=== PATIENT | female | born 1945 | race Caucasian/White ===

== ENCOUNTER → 2019-03-22 | Outpatient (CLI) | payer MEDICARE | END | disposition home or self-care (01) | LOC: RAH 10:28 | PROVIDERS: ATTEND Physical Medicine & Rehabilitation | DX: M51.06 Intervertebral disc disorders with myelopathy, lumbar region (principal); M48.061 Spinal stenosis, lumbar region without neurogenic claudication; M47.16 Other spondylosis with myelopathy, lumbar region; M43.16 Spondylolisthesis, lumbar region; M89.38 Hypertrophy of bone, other site | CPT/HCPCS: 72148 ==

== ENCOUNTER → 2020-04-05 | Outpatient (CLI) | payer MEDICARE | END | disposition home or self-care (01) | LOC: SHCH 14:58 | PROVIDERS: ATTEND Internal Medicine Cardiovascular Disease | DX: I87.2 Venous insufficiency (chronic) (peripheral) (principal) | CPT/HCPCS: 93970 ==

== ENCOUNTER → 2020-07-03 | Outpatient (CLI) | payer MEDICARE ==
[~2020-07-03] MED LIST: LIDOCAINE HCL 2% JELLY 5 ML ONE
== END | disposition home or self-care (01) ==
LOC: WHH 11:00
PROVIDERS: ATTEND Family Medicine
DX: L97.812 Non-pressure chronic ulcer of other part of right lower leg with fat layer exposed (principal); S81.801A Unspecified open wound, right lower leg, initial encounter; L02.416 Cutaneous abscess of left lower limb; S41.111A Laceration without foreign body of right upper arm, initial encounter; M48.00 Spinal stenosis, site unspecified; M85.80 Other specified disorders of bone density and structure, unspecified site; J44.9 Chronic obstructive pulmonary disease, unspecified; M06.9 Rheumatoid arthritis, unspecified; M79.7 Fibromyalgia; Z88.0 Allergy status to penicillin; Z86.73 Personal history of transient ischemic attack (TIA), and cerebral infarction without residual deficits; X58.XXXA Exposure to other specified factors, initial encounter; Y93.89 Activity, other specified; Y92.89 Other specified places as the place of occurrence of the external cause; Y99.8 Other external cause status
CPT/HCPCS: 10060; 11042; A6021; A6197

== ENCOUNTER → 2020-07-10 | Outpatient (CLI) | payer MEDICARE | END | disposition home or self-care (01) | LOC: WHH 11:00 | PROVIDERS: ATTEND Family Medicine | DX: L97.812 Non-pressure chronic ulcer of other part of right lower leg with fat layer exposed (principal); S81.801D Unspecified open wound, right lower leg, subsequent encounter; L02.416 Cutaneous abscess of left lower limb; M48.00 Spinal stenosis, site unspecified; M85.80 Other specified disorders of bone density and structure, unspecified site; J44.9 Chronic obstructive pulmonary disease, unspecified; M06.9 Rheumatoid arthritis, unspecified; M79.7 Fibromyalgia; Z88.0 Allergy status to penicillin; Z86.73 Personal history of transient ischemic attack (TIA), and cerebral infarction without residual deficits; X58.XXXD Exposure to other specified factors, subsequent encounter | CPT/HCPCS: 11042; 87070; A6021; A6197 ==

== ENCOUNTER → 2020-07-17 | Outpatient (CLI) | payer MEDICARE | END | disposition home or self-care (01) | LOC: WHH 10:30 | PROVIDERS: ATTEND Family Medicine | DX: L97.812 Non-pressure chronic ulcer of other part of right lower leg with fat layer exposed (principal); L97.822 Non-pressure chronic ulcer of other part of left lower leg with fat layer exposed; S81.801D Unspecified open wound, right lower leg, subsequent encounter; L02.416 Cutaneous abscess of left lower limb; M48.00 Spinal stenosis, site unspecified; M85.80 Other specified disorders of bone density and structure, unspecified site; J44.9 Chronic obstructive pulmonary disease, unspecified; M06.9 Rheumatoid arthritis, unspecified; M79.7 Fibromyalgia; Z88.0 Allergy status to penicillin; Z86.73 Personal history of transient ischemic attack (TIA), and cerebral infarction without residual deficits; X58.XXXD Exposure to other specified factors, subsequent encounter | CPT/HCPCS: 11042; A6021; A6196 ==

== ENCOUNTER → 2020-07-26 | Outpatient (CLI) | payer MEDICARE | END | disposition home or self-care (01) | LOC: WHH 13:20 | PROVIDERS: ATTEND Family Medicine | DX: L97.812 Non-pressure chronic ulcer of other part of right lower leg with fat layer exposed (principal); L97.822 Non-pressure chronic ulcer of other part of left lower leg with fat layer exposed; S81.801D Unspecified open wound, right lower leg, subsequent encounter; L02.416 Cutaneous abscess of left lower limb; M48.00 Spinal stenosis, site unspecified; M85.80 Other specified disorders of bone density and structure, unspecified site; J44.9 Chronic obstructive pulmonary disease, unspecified; M06.9 Rheumatoid arthritis, unspecified; M79.7 Fibromyalgia; Z88.0 Allergy status to penicillin; Z86.73 Personal history of transient ischemic attack (TIA), and cerebral infarction without residual deficits; X58.XXXD Exposure to other specified factors, subsequent encounter | CPT/HCPCS: 11042; A6021; A6196 ==

== ENCOUNTER → 2020-08-02 | Outpatient (CLI) | payer MEDICARE | END | disposition home or self-care (01) | LOC: WHH 13:30 | PROVIDERS: ATTEND Family Medicine | DX: L97.812 Non-pressure chronic ulcer of other part of right lower leg with fat layer exposed (principal); L97.822 Non-pressure chronic ulcer of other part of left lower leg with fat layer exposed; S81.801D Unspecified open wound, right lower leg, subsequent encounter; L02.416 Cutaneous abscess of left lower limb; M48.00 Spinal stenosis, site unspecified; M85.80 Other specified disorders of bone density and structure, unspecified site; J44.9 Chronic obstructive pulmonary disease, unspecified; M06.9 Rheumatoid arthritis, unspecified; M79.7 Fibromyalgia; Z88.0 Allergy status to penicillin; Z86.73 Personal history of transient ischemic attack (TIA), and cerebral infarction without residual deficits; X58.XXXD Exposure to other specified factors, subsequent encounter | CPT/HCPCS: 11042; A6021; A6197 ==

== ENCOUNTER → 2020-08-09 | Outpatient (CLI) | payer MEDICARE | END | disposition home or self-care (01) | LOC: WHH 11:00 | PROVIDERS: ATTEND Family Medicine | DX: L97.812 Non-pressure chronic ulcer of other part of right lower leg with fat layer exposed (principal); L97.822 Non-pressure chronic ulcer of other part of left lower leg with fat layer exposed; S81.801D Unspecified open wound, right lower leg, subsequent encounter; L02.416 Cutaneous abscess of left lower limb; M48.00 Spinal stenosis, site unspecified; M85.80 Other specified disorders of bone density and structure, unspecified site; J44.9 Chronic obstructive pulmonary disease, unspecified; M06.9 Rheumatoid arthritis, unspecified; M79.7 Fibromyalgia; Z88.0 Allergy status to penicillin; Z86.73 Personal history of transient ischemic attack (TIA), and cerebral infarction without residual deficits; X58.XXXD Exposure to other specified factors, subsequent encounter | CPT/HCPCS: 11042; A6021; A6022; A6196; A6197 ==

== ENCOUNTER → 2020-08-23 | Outpatient (CLI) | payer MEDICARE | END | disposition home or self-care (01) | LOC: WHH 10:55 | PROVIDERS: ATTEND Family Medicine | DX: L02.416 Cutaneous abscess of left lower limb (principal); L97.822 Non-pressure chronic ulcer of other part of left lower leg with fat layer exposed; L97.818 Non-pressure chronic ulcer of other part of right lower leg with other specified severity; M48.00 Spinal stenosis, site unspecified; M85.80 Other specified disorders of bone density and structure, unspecified site; J44.9 Chronic obstructive pulmonary disease, unspecified; M06.9 Rheumatoid arthritis, unspecified; Z88.0 Allergy status to penicillin; Z86.73 Personal history of transient ischemic attack (TIA), and cerebral infarction without residual deficits | CPT/HCPCS: 15271; 87070; 87077; 87186; A6197; A6207; Q4133 ==

== ENCOUNTER → 2020-08-30 | Outpatient (CLI) | payer MEDICARE | END | disposition home or self-care (01) | LOC: WHH 11:00 | PROVIDERS: ATTEND Family Medicine | DX: L02.416 Cutaneous abscess of left lower limb (principal); L97.822 Non-pressure chronic ulcer of other part of left lower leg with fat layer exposed; M85.80 Other specified disorders of bone density and structure, unspecified site; M48.00 Spinal stenosis, site unspecified; J44.9 Chronic obstructive pulmonary disease, unspecified; M06.9 Rheumatoid arthritis, unspecified; Z88.0 Allergy status to penicillin; Z86.73 Personal history of transient ischemic attack (TIA), and cerebral infarction without residual deficits | CPT/HCPCS: 15271; A6197; Q4133 ==

== ENCOUNTER → 2020-09-06 | Outpatient (CLI) | payer MEDICARE | END | disposition home or self-care (01) | LOC: WHH 11:00 | PROVIDERS: ATTEND Family Medicine | DX: L02.416 Cutaneous abscess of left lower limb (principal); L97.822 Non-pressure chronic ulcer of other part of left lower leg with fat layer exposed; M85.80 Other specified disorders of bone density and structure, unspecified site; M48.00 Spinal stenosis, site unspecified; J44.9 Chronic obstructive pulmonary disease, unspecified; M06.9 Rheumatoid arthritis, unspecified; Z88.0 Allergy status to penicillin; Z86.73 Personal history of transient ischemic attack (TIA), and cerebral infarction without residual deficits | CPT/HCPCS: 15271; A6197; Q4133 ==

== ENCOUNTER → 2020-09-20 | Outpatient (CLI) | payer MEDICARE | END | disposition home or self-care (01) | LOC: WHH 11:10 | PROVIDERS: ATTEND Family Medicine | DX: L02.416 Cutaneous abscess of left lower limb (principal); L97.822 Non-pressure chronic ulcer of other part of left lower leg with fat layer exposed; L97.812 Non-pressure chronic ulcer of other part of right lower leg with fat layer exposed; M85.80 Other specified disorders of bone density and structure, unspecified site; M48.00 Spinal stenosis, site unspecified; J44.9 Chronic obstructive pulmonary disease, unspecified; M06.9 Rheumatoid arthritis, unspecified; Z88.0 Allergy status to penicillin; Z86.73 Personal history of transient ischemic attack (TIA), and cerebral infarction without residual deficits | CPT/HCPCS: 15271; A6197; Q4133 ==

== ENCOUNTER → 2020-09-27 | Outpatient (CLI) | payer MEDICARE | END | disposition home or self-care (01) | LOC: WHH 11:00 | PROVIDERS: ATTEND Family Medicine | DX: L02.416 Cutaneous abscess of left lower limb (principal); L97.822 Non-pressure chronic ulcer of other part of left lower leg with fat layer exposed; L97.812 Non-pressure chronic ulcer of other part of right lower leg with fat layer exposed; L97.321 Non-pressure chronic ulcer of left ankle limited to breakdown of skin; S91.012A Laceration without foreign body, left ankle, initial encounter; M85.80 Other specified disorders of bone density and structure, unspecified site; M48.00 Spinal stenosis, site unspecified; J44.9 Chronic obstructive pulmonary disease, unspecified; M06.9 Rheumatoid arthritis, unspecified; Z88.0 Allergy status to penicillin; Z86.73 Personal history of transient ischemic attack (TIA), and cerebral infarction without residual deficits; X58.XXXA Exposure to other specified factors, initial encounter; Y93.89 Activity, other specified; Y92.89 Other specified places as the place of occurrence of the external cause; Y99.8 Other external cause status | CPT/HCPCS: 15271; A6213; A6456; Q4133 ==

== ENCOUNTER → 2020-09-28 | Outpatient (CLI) | payer MEDICARE | END | disposition home or self-care (01) | LOC: RAH 16:02 | PROVIDERS: ATTEND Internal Medicine | DX: M19.042 Primary osteoarthritis, left hand (principal); M19.041 Primary osteoarthritis, right hand ==

== ENCOUNTER → 2020-10-11 | Outpatient (CLI) | payer MEDICARE | END | disposition home or self-care (01) | LOC: WHH 11:00 | PROVIDERS: ATTEND Family Medicine | DX: L02.416 Cutaneous abscess of left lower limb (principal); L97.822 Non-pressure chronic ulcer of other part of left lower leg with fat layer exposed; L97.812 Non-pressure chronic ulcer of other part of right lower leg with fat layer exposed; M19.042 Primary osteoarthritis, left hand; M19.041 Primary osteoarthritis, right hand; I83.93 Asymptomatic varicose veins of bilateral lower extremities; M85.80 Other specified disorders of bone density and structure, unspecified site; M48.00 Spinal stenosis, site unspecified; J44.9 Chronic obstructive pulmonary disease, unspecified; M06.9 Rheumatoid arthritis, unspecified; Z88.0 Allergy status to penicillin; Z86.73 Personal history of transient ischemic attack (TIA), and cerebral infarction without residual deficits | CPT/HCPCS: 15271; A6213; Q4133 ==

== ENCOUNTER → 2020-10-18 | Outpatient (CLI) | payer MEDICARE | END | disposition home or self-care (01) | LOC: WHH 11:00 | PROVIDERS: ATTEND Family Medicine | DX: L97.822 Non-pressure chronic ulcer of other part of left lower leg with fat layer exposed (principal); L02.416 Cutaneous abscess of left lower limb; S91.012D Laceration without foreign body, left ankle, subsequent encounter; X58.XXXD Exposure to other specified factors, subsequent encounter; M19.042 Primary osteoarthritis, left hand; M19.041 Primary osteoarthritis, right hand; I83.93 Asymptomatic varicose veins of bilateral lower extremities; M85.80 Other specified disorders of bone density and structure, unspecified site; M48.00 Spinal stenosis, site unspecified; J44.9 Chronic obstructive pulmonary disease, unspecified; M06.9 Rheumatoid arthritis, unspecified; Z88.0 Allergy status to penicillin; Z86.73 Personal history of transient ischemic attack (TIA), and cerebral infarction without residual deficits | CPT/HCPCS: G0463 ==

== ENCOUNTER → 2020-10-25 | Outpatient (CLI) | payer MEDICARE | END | disposition home or self-care (01) | LOC: WHH 10:50 | PROVIDERS: ATTEND Family Medicine | DX: L02.416 Cutaneous abscess of left lower limb (principal); L97.811 Non-pressure chronic ulcer of other part of right lower leg limited to breakdown of skin; M19.042 Primary osteoarthritis, left hand; M19.041 Primary osteoarthritis, right hand; I83.93 Asymptomatic varicose veins of bilateral lower extremities; M85.80 Other specified disorders of bone density and structure, unspecified site; M48.00 Spinal stenosis, site unspecified; J44.9 Chronic obstructive pulmonary disease, unspecified; M06.9 Rheumatoid arthritis, unspecified; Z88.0 Allergy status to penicillin; Z86.73 Personal history of transient ischemic attack (TIA), and cerebral infarction without residual deficits | CPT/HCPCS: G0463 ==

== ENCOUNTER → 2021-07-15 | Outpatient (CLI) | payer MEDICARE | END | disposition home or self-care (01) | LOC: RAH 14:43 | PROVIDERS: ATTEND Neurological Surgery | DX: M48.061 Spinal stenosis, lumbar region without neurogenic claudication (principal); M47.26 Other spondylosis with radiculopathy, lumbar region | CPT/HCPCS: 72148 ==

== ENCOUNTER → 2021-07-22 | Outpatient (CLI) | payer MEDICARE ==
[2021-07-22 14:39] LABS: CREATININE 0.6 mg/dL (0.5-1.5)
== END | disposition home or self-care (01) ==
LOC: DAH 13:22
PROVIDERS: ATTEND Neurological Surgery
DX: M84.350A Stress fracture, pelvis, initial encounter for fracture (principal)
CPT/HCPCS: 36415; 82565; 84520

== ENCOUNTER → 2021-08-06 | Outpatient (CLI) | payer MEDICARE ==
[~2021-08-06] MED LIST changes: +GADOTERATE MEGLUMINE 10 MMOL/20 ML VIAL IV ONE; -LIDOCAINE HCL 2% JELLY 5 ML ONE
== END | disposition home or self-care (01) ==
LOC: RAH 10:54
PROVIDERS: ATTEND Neurological Surgery
DX: M84.350A Stress fracture, pelvis, initial encounter for fracture (principal); K57.90 Diverticulosis of intestine, part unspecified, without perforation or abscess without bleeding; M89.8X8 Other specified disorders of bone, other site; N32.89 Other specified disorders of bladder; Z96.642 Presence of left artificial hip joint
CPT/HCPCS: 72197; A9575

== ENCOUNTER → 2022-03-10 | Outpatient (CLI) | payer MEDICARE | END | disposition home or self-care (01) | LOC: SHCH 08:11 | PROVIDERS: ATTEND Internal Medicine Cardiovascular Disease | DX: I87.2 Venous insufficiency (chronic) (peripheral) (principal); Z98.890 Other specified postprocedural states | CPT/HCPCS: 93971 ==

== ENCOUNTER → 2023-02-09 | Outpatient (CLI) | payer MEDICARE | END | disposition home or self-care (01) | LOC: SHCH 13:10 | PROVIDERS: ATTEND Internal Medicine Cardiovascular Disease | DX: I87.2 Venous insufficiency (chronic) (peripheral) (principal); I87.1 Compression of vein | CPT/HCPCS: 93970 ==

== ENCOUNTER 2023-05-01 07:43 | Day surgery (SDC) | payer MEDICARE ==
[2023-04-30 13:43] LABS: BASOPHILS # (AUTO) 0.04 K/uL (0.00-0.20); BASOPHILS % (AUTO) 0.4 % (0.0-5.0); EOSINOPHILS # (AUTO) 0.05 K/uL (0.00-0.70); EOSINOPHILS % (AUTO) 0.5 % (0.0-8.0); HEMATOCRIT 35.6 % (36-48); IMMATURE GRANULOCYTE ABSOLUTE 0.04 K/uL (0-1); LYMPHOCYTES # (AUTO) 1.1 K/uL (1.0-4.8); LYMPHOCYTES % (AUTO) 10.1 % (21.0-51.0); MEAN CORPUSCULAR HEMOGLOBIN 30.8 pg (27.0-33.0); MEAN CORPUSCULAR HGB CONC 31.5 g/dL (32.0-36.0); MEAN CORPUSCULAR VOLUME 97.8 fL (79-99); MONOCYTES # (AUTO) 0.7 K/uL (0.1-1.0); MONOCYTES % (AUTO) 6.8 % (3.0-13.0); NEUTROPHILS # (AUTO) 8.6 K/uL (1.8-7.7); NEUTROPHILS % (AUTO) 81.8 % (40.0-77.0); PLATELET COUNT (AUTO) 251 K/uL (130-400); RED BLOOD CELL COUNT(AUTO) 3.64 MIL/uL (4.00-5.50); RED CELL DISTRIBUTION WIDTH 16.2 % (11.0-15.5); WHITE BLOOD COUNT (AUTO) 10.5 K/uL (4.8-10.8)
[2023-04-30 13:53] LABS: CREATININE 0.7 mg/dL (0.5-1.5); POTASSIUM 4.4 mmol/L (3.5-5.1)
[2023-04-30 14:08] VITALS: BP 131/57; PULSE 54; RESP 18
[2023-04-30 14:19] LABS: INR < 0.93 (0.85-1.15); PROTHROMBIN TIME 10.7 SEC (9.6-11.6)
[2023-04-30 14:20] LABS: PARTIAL THROMBOPLASTIN TIME 26.9 SEC (26.3-35.5)
[~2023-05-01] VITALS: Ht 157.5 cm; Wt 103.0 kg
[2023-05-01 07:39] VITALS: BP 130/63; PULSE 58; RESP 19
[~2023-05-01 07:43] MED LIST changes: +ACET-2247 PO; +BIOT10005 PO; +CALC-1125 PO; +CITA-108 PO; +CLOB15OI3 TP; +CLOP75TA32 PO; +CYAN1TAB44 PO; +DOXE25CA3 PO; +FOLI1 PO; +FOLI200T12 PO; +FURO20TA4 PO; +GABA600T PO; +GABA600T10 PO; -GADOTERATE MEGLUMINE 10 MMOL/20 ML VIAL IV ONE; +HYDR200T75 PO; +IPRAHFA IH; +LANS30CA55 PO; +MECL-160 PO; +METH25VI11 IM; +METO-408 PO; +OXYB-66 PO; +PRED-409 PO; +ROSU5TAB12 PO; +TRAM50TA4 PO; +super b complex PO
[2023-05-01] MEDS ORDERED: 0.9%NACL 1000ML 1,000 ML IV ONE (08:27)
[2023-05-01] MEDS ORDERED: BUPIVACAINE/PF 0.25% 30ML VIAL IJ ONE (08:30)
[2023-05-01] MEDS ORDERED: LIDOCAINE HCL 1% MDV 50ML VIAL ONE (08:30)
[2023-05-01] MEDS ORDERED: FENTANYL CITRATE PF 50 MCG/1 ML 2ML VIAL ONE (09:20)
[2023-05-01] MEDS ORDERED: MIDAZOLAM HCL 1 MG/ML 2ML VIAL ONE (09:20)
[2023-05-01] MEDS ORDERED: OCTYL 2-CYANOACRYLATE 1 EACH TP ONE ×2 (09:26→09:34)
[2023-05-01] MEDS ORDERED: ONDANSETRON 4MG INJ IV PRN (10:00)
[2023-05-01 10:10] VITALS: BP 143/65; PULSE 47; RESP 11
[2023-05-01 10:25] VITALS: BP 132/67; PULSE 67; RESP 12
[2023-05-01 10:40] VITALS: BP 138/58; PULSE 47; RESP 12
== END 2023-05-01 10:48 | disposition home or self-care (01) ==
LOC: DAH 07:43
PROVIDERS: ATTEND Internal Medicine Interventional Cardiology
DX: I48.11 Longstanding persistent atrial fibrillation (principal); R42 Dizziness and giddiness; I10 Essential (primary) hypertension; M19.90 Unspecified osteoarthritis, unspecified site; E11.43 Type 2 diabetes mellitus with diabetic autonomic (poly)neuropathy; E11.59 Type 2 diabetes mellitus with other circulatory complications; E66.01 Morbid (severe) obesity due to excess calories; E78.2 Mixed hyperlipidemia; Z79.899 Other long term (current) drug therapy; Z79.01 Long term (current) use of anticoagulants; Z98.890 Other specified postprocedural states; Z86.73 Personal history of transient ischemic attack (TIA), and cerebral infarction without residual deficits; Z88.6 Allergy status to analgesic agent; Z88.3 Allergy status to other anti-infective agents; Z88.8 Allergy status to other drugs, medicaments and biological substances; Z91.040 Latex allergy status; Z68.41 Body mass index [BMI] 40.0-44.9, adult
CPT/HCPCS: 80048; 85025; 85610; 85730; 36415; 71045 ×2; 93005; 33285; A4649; C1764; J3010; J7030; J3490 ×2; J2250; A4215; A4222; A4221; A4663; A4216; A4606; A4223 ×3; 99156

== ENCOUNTER → 2023-05-08 | Outpatient (CLI) | payer MEDICARE ==
[2023-05-08 15:24] LABS: BASOPHILS # (AUTO) 0.05 K/uL (0.00-0.20); BASOPHILS % (AUTO) 0.4 % (0.0-5.0); EOSINOPHILS # (AUTO) 0.07 K/uL (0.00-0.70); EOSINOPHILS % (AUTO) 0.5 % (0.0-8.0); HEMATOCRIT 36.6 % (36-48); IMMATURE GRANULOCYTE ABSOLUTE 0.05 K/uL (0-1); LYMPHOCYTES # (AUTO) 1.3 K/uL (1.0-4.8); LYMPHOCYTES % (AUTO) 9.9 % (21.0-51.0); MEAN CORPUSCULAR HEMOGLOBIN 30.1 pg (27.0-33.0); MEAN CORPUSCULAR HGB CONC 31.1 g/dL (32.0-36.0); MEAN CORPUSCULAR VOLUME 96.6 fL (79-99); MONOCYTES # (AUTO) 0.7 K/uL (0.1-1.0); MONOCYTES % (AUTO) 5.6 % (3.0-13.0); NEUTROPHILS # (AUTO) 10.9 K/uL (1.8-7.7); NEUTROPHILS % (AUTO) 83.2 % (40.0-77.0); PLATELET COUNT (AUTO) 246 K/uL (130-400); RED BLOOD CELL COUNT(AUTO) 3.79 MIL/uL (4.00-5.50); RED CELL DISTRIBUTION WIDTH 16.5 % (11.0-15.5); WHITE BLOOD COUNT (AUTO) 13.1 K/uL (4.8-10.8)
[2023-05-08 15:36] LABS: INR < 0.93 (0.85-1.15); PROTHROMBIN TIME 10.6 SEC (9.6-11.6)
[2023-05-08 15:38] LABS: PARTIAL THROMBOPLASTIN TIME 27.2 SEC (26.3-35.5)
[2023-05-08 15:52] LABS: POTASSIUM 4.3 mmol/L (3.5-5.1)
[2023-05-08 17:25] LABS: CREATININE 0.8 mg/dL (0.5-1.5)
== END | disposition home or self-care (01) ==
LOC: LAB 14:37
PROVIDERS: ATTEND Internal Medicine Cardiovascular Disease
DX: I87.1 Compression of vein (principal); I10 Essential (primary) hypertension; E78.5 Hyperlipidemia, unspecified; M79.605 Pain in left leg; M79.604 Pain in right leg; Z79.899 Other long term (current) drug therapy
CPT/HCPCS: 36415; 80048; 85025; 85610; 85730

== ENCOUNTER → 2023-08-05 | Outpatient (CLI) | payer MEDICARE ==
[~2023-08-05] MED LIST changes: -MECL-160 PO; +MECL-302 PO
[2023-08-05 16:24] LABS: BASOPHILS # (AUTO) 0.05 K/uL (0.00-0.20); BASOPHILS % (AUTO) 0.5 % (0.0-5.0); EOSINOPHILS # (AUTO) 0.09 K/uL (0.00-0.70); EOSINOPHILS % (AUTO) 0.9 % (0.0-8.0); HEMATOCRIT 35.6 % (36-48); IMMATURE GRANULOCYTE ABSOLUTE 0.04 K/uL (0-1); LYMPHOCYTES # (AUTO) 1.1 K/uL (1.0-4.8); MEAN CORPUSCULAR HEMOGLOBIN 29.9 pg (27.0-33.0); MEAN CORPUSCULAR HGB CONC 30.6 g/dL (32.0-36.0); MEAN CORPUSCULAR VOLUME 97.8 fL (79-99); MONOCYTES # (AUTO) 0.8 K/uL (0.1-1.0); MONOCYTES % (AUTO) 7.6 % (3.0-13.0); NEUTROPHILS # (AUTO) 7.9 K/uL (1.8-7.7); NEUTROPHILS % (AUTO) 79.6 % (40.0-77.0); PLATELET COUNT (AUTO) 364 K/uL (130-400); RED BLOOD CELL COUNT(AUTO) 3.64 MIL/uL (4.00-5.50); RED CELL DISTRIBUTION WIDTH 16.4 % (11.0-15.5)
[2023-08-05 16:35] LABS: CREATININE 0.8 mg/dL (0.5-1.5); POTASSIUM 4.8 mmol/L (3.5-5.1)
[2023-08-05 16:45] LABS: INR 0.94 (0.85-1.15)
[2023-08-05 16:46] LABS: PARTIAL THROMBOPLASTIN TIME 29.3 SEC (26.3-35.5)
== END | disposition home or self-care (01) ==
LOC: LAB 14:36
PROVIDERS: ATTEND Internal Medicine Cardiovascular Disease
DX: I87.1 Compression of vein (principal); Z79.899 Other long term (current) drug therapy; R20.0 Anesthesia of skin; E78.5 Hyperlipidemia, unspecified; M06.9 Rheumatoid arthritis, unspecified; M79.7 Fibromyalgia; G62.9 Polyneuropathy, unspecified; R07.9 Chest pain, unspecified; Z82.3 Family history of stroke
CPT/HCPCS: 36415; 80048; 85025; 85610; 85730

== ENCOUNTER → 2023-09-25 | Outpatient (CLI) | payer MEDICARE ==
[~2023-09-25] MED LIST changes: +CLOB15OI21 TP; -CLOB15OI3 TP
[2023-09-25] MEDS: REGADENOSON 0.4 MG/5 ML PF SYG IVP SCH (13:45)
== END | disposition home or self-care (01) ==
LOC: RAH 10:05
PROVIDERS: ATTEND Internal Medicine Interventional Cardiology
DX: R07.9 Chest pain, unspecified (principal)
CPT/HCPCS: 78452; 96374; 93017; J2785; A9500 ×2

== ENCOUNTER → 2024-09-30 | Outpatient (CLI) | payer MEDICARE ==
[~2024-09-30] MED LIST changes: +GABA-1405 PO; -GABA600T10 PO; -ROSU5TAB12 PO; +ROSU5TAB51 PO
--- NOTE | 2024-09-30 14:13 | HMCSR ---
APPROVED REPORT Laterality: Bilateral Indications i73.9 i87.2 VELOCITY AND DOPPLER WAVEFORM ANALYSIS AUTOMATION CONSULTANT (R) 151.7cm/sec, Biphasic, AUTOMATION CONSULTANT (L) 146.8cm/sec, Biphasic, Prof Fem Art. (R) 78.1cm/sec, Biphasic, Prof Fem Art. (L) 57.1cm/sec, Biphasic, Fem Art Prox. (R) 86.1cm/sec, Biphasic, Fem Art Prox. (L) 107.7cm/sec, Biphasic, Fem Art Mid. (R) 88.8cm/sec, Biphasic, Fem Art Mid. (L) 167.5cm/sec, Biphasic, Fem Art Dist (R) 96.0cm/sec, Biphasic, Fem Art Dist. (L) 108.8cm/sec, Biphasic, Pop Art(AK) (R) 90.6cm/sec, Biphasic, Pop Art (AK) (L) 101.9cm/sec, Biphasic, Pop Art (Fossa)(R) 60.1cm/sec, Biphasic, Pop Art (Fossa) (L) 68.3cm/sec, Biphasic, Pop Art(BK) (R) 77.2cm/sec, Biphasic, Pop Art (BK) (L) 82.2cm/sec, Biphasic, MAIL CARRIERS SUPERVISOR Prox. (R) 58.3cm/sec, Biphasic, MAIL CARRIERS SUPERVISOR Prox. (L) 93.8cm/sec, Biphasic, MAIL CARRIERS SUPERVISOR Mid. (R) 79.9cm/sec, Biphasic, MAIL CARRIERS SUPERVISOR Mid. (L) 118.1cm/sec, Biphasic, MAIL CARRIERS SUPERVISOR Dist. (R) 69.1cm/sec, Biphasic, MAIL CARRIERS SUPERVISOR Dist. (L) 113.5cm/sec, Biphasic, Per Art Prox. (R) 25.8cm/sec, Biphasic, Per Art Prox. (L) 70.6cm/sec, Biphasic, Per Art Mid. (R) 35.9cm/sec, Biphasic, Per Art Mid. (L) 78.7cm/sec, Biphasic, Per Art Dist. (R) 33.8cm/sec, Biphasic, Per Art Dist. (L) 54.4cm/sec, Biphasic, [place] Prox. (R) 96.0cm/sec, Biphasic, [place] Prox. (L) 106.0cm/sec, Biphasic, [place] Mid. (R) 48.5cm/sec, Biphasic [place] Mid. (L) 69.1cm/sec, Biphasic, [place] Dist. (R) 98.7cm/sec, Biphasic, [place] Dist. (L) 106.3cm/sec, Biphasic, Technologist Impression Multiphasic waveforms in the bilateral lower extremities. Conclusion No evidence of significant arterial insufficiency of bilateral lower extremities. Conclusion No evidence of significant arterial insufficiency of bilateral lower extremities.
--- NOTE | 2024-09-30 14:14 | HMCSR ---
APPROVED REPORT Bilateral Lower Extremity Venous Study for DVT., Venous Competence. Indications Lower Extremity Pain: , i87.1,i87.2 Vein Imaging CFV (R): Normal flow, augmentation and compression. No evidence of DVT. 12.4mm 0.0ms of reflux. SFJ (R): Normal flow, augmentation and compression. No evidence of DVT. FEM (R): Normal flow, augmentation and compression. No evidence of DVT. POP (R): Normal flow, augmentation and compression. No evidence of DVT. DFV (R): Normal flow, augmentation and compression. No evidence of DVT. PTV (R): Normal flow, augmentation and compression. No evidence of DVT. Peroneals (R): Normal flow, augmentation and compression. No evidence of DVT. CFV (L): Normal flow, augmentation and compression. No evidence of DVT. 11.9mm 494ms of reflux. SFJ (L): Normal flow, augmentation and compression. No evidence of DVT. FEM (L): Normal flow, augmentation and compression. No evidence of DVT. POP (L): Normal flow, augmentation and compression. No evidence of DVT. DFV (L): Normal flow, augmentation and compression. No evidence of DVT. PTV (L): Normal flow, augmentation and compression. No evidence of DVT. Peroneals (L): Normal flow, augmentation and compression. No evidence of DVT. Technologist Impression Deep veins of the bilateral lower extremities appear patent and compressible without thrombus. No evidence of deep venous reflux. Venous insufficiency noted in the RGSV and LGSV at junction. RGSV junction 7.1mm 3767ms thigh 6.0mm 4067ms (deep) knee 5.0mm 3856ms calf 3.9mm 1783ms RSSV prox 2.4mm 0.0ms mid 3.0mm 0.0ms LGSV junction 8.1mm 1117ms thigh 3.6mm 0.0ms knee 3.3mm 0.0ms calf 2.1mm 0.0ms LSSV prox 2.2mm 0.0ms mid 1.7mm 0.0ms Conclusion Venous insufficiency noted in the RGSV and LGSV at junction. This may be indicative of iliac vein compression Clinical correlation recommended Conclusion Venous insufficiency noted in the RGSV and LGSV at junction. This may be indicative of iliac vein compression Clinical correlation recommended
== END | disposition home or self-care (01) ==
LOC: SHCH 10:37
PROVIDERS: ATTEND Internal Medicine Cardiovascular Disease
DX: I87.2 Venous insufficiency (chronic) (peripheral) (principal); I73.9 Peripheral vascular disease, unspecified; I87.1 Compression of vein
CPT/HCPCS: 93925; 93970

== ENCOUNTER → 2024-12-13 | Outpatient (CLI) | payer MEDICARE | END | disposition home or self-care (01) | LOC: SHCH 14:55 | PROVIDERS: ATTEND Internal Medicine Cardiovascular Disease | DX: I87.2 Venous insufficiency (chronic) (peripheral) (principal); Z09 Encounter for follow-up examination after completed treatment for conditions other than malignant neoplasm | CPT/HCPCS: 93971 ==